=== PATIENT | female | born 1950 ===

== ENCOUNTER 2024-11-18 08:45 | Inpatient (IN) | payer OTHER ==
[~2024-11-18] VITALS: Ht 152.4 cm; Wt 93.9 kg
[2024-11-18] MEDS ORDERED: SYNJARDY 12.5-1 EACH PO (09:09)
[2024-11-18] MEDS ORDERED: COZAAR100 MG PO (09:10)
[2024-11-18] MEDS ORDERED: GLIPIZIDE ER10 MG PO (09:10)
[2024-11-18] MEDS ORDERED: AMLODIPINE-OLM1 EAC2 (09:11)
[2024-11-18] MEDS ORDERED: SINGULAIR4 M1 (09:11)
[2024-11-18] MEDS ORDERED: ZYRTEC10 M3 PO (09:11)
[2024-11-18] MEDS ORDERED: LIPITOR80 MG PO (09:12)
[2024-11-18] MEDS ORDERED: OZEMPIC0.25 MG/02 (09:12)
[2024-11-18 09:20] VITALS: BP 137/81
[2024-11-18 09:48] LABS: BASO % 0.5 % (0.1-1.2); EOS # 0.16 (0.04-0.54); EOS % 1.7 % (0.7-7.0); LYMPH # 3.62 (1.18-3.74); LYMPH % 38.3 % (19.3-53.1); MEAN PLATELET VOLUME 9.50 fl (9.4-12.4); MONO # 0.72 (0.24-0.82); MONO % 7.6 % (4.7-12.5); NEUT # 4.85 (1.56-6.13); NEUT % 51.5 % (34.0-71.1); RED CELL DISTRIBUTION WIDTH 14.5 % (11.6-14.4)
[2024-11-18 10:14] LABS: INR 0.95
[2024-11-18 10:26] LABS: URINE APPEARANCE Clear; URINE BILIRRUBIN Negative (NEGATIVE); URINE BLOOD Negative; URINE COLOR Dark Yellow; URINE KETONE 15 (NEGATIVE); URINE LEUKOCYTE Negative; URINE NITRATE Negative; URINE PROTEIN Trace (NEGATIVE); URINE UROBILINOGEN 0.2 E.U./dl
[2024-11-18 10:32] LABS: URINE BACTERIA 5699.8 uL (0.0-1933); URINE EPITHELIAL CELLS 32.9 uL (0.0-38.8); URINE RBC 11.1 uL (0.0-20.8); URINE WBC 10.3 uL (0.0-23.2)
[2024-11-18 10:37] LABS: BUN CREA RATIO 44.0 (7.0-25.0); CREATININE SERUM 0.59 mg/dL (0.55-1.02); GFR 100.48; GLUCOSE FASTING 76.0 mg/dL (65-100); OSMOLALITY SERUM 292.0 MOSM/KG (275-295)
[2024-11-18 10:54] LABS: URINE CAST 0.29 uL (0.0-1.40); URINE GLUCOSE 500 MG/DL (NEGATIVE)
[2024-11-18 10:55] LABS: URINE CRYSTALS MODERATE /HPF
[2024-11-18 10:56] LABS: URINE MUCUS MODERATE
[2024-11-18 11:03] LABS: RH POSITIVE
[2024-11-28] MEDS ORDERED: FUROSEMIDE20 MG (08:02)
[2024-11-28] MEDS ORDERED: MAXIMUM D3325 MCG (08:02)
[2024-11-28] MEDS ORDERED: MONTELUKAST SOD10 MG (08:02)
[2024-11-28] MEDS ORDERED: DULOXETINE HCL30 MG (08:02)
[2024-11-28] MEDS ORDERED: PENTOXIFYLLINE400 MG (08:02)
[2024-11-28] MEDS ORDERED: AMLODIPINE BESYL5 MG (08:02)
[2024-11-28] MEDS ORDERED: SYNJARDY XR 121 EACH (08:03)
[2024-11-28] MEDS ORDERED: LIDOCAINE HCL 1%/EPINEPHRINE 20ML VIAL IJ ONE (08:15)
[2024-11-28] MEDS ORDERED: BUPIVACAINE HCL 30 ML VIAL IJ ONE (08:15)
[2024-11-28] MEDS ORDERED: VANCOMYCIN HCL 1,000 MG VIAL IV ONE (08:15)
[2024-11-28] MEDS ORDERED: ISOPROPYL ALCOHOL 30 ML OUNCE TOP ONE (08:15)
[2024-11-28] MEDS ORDERED: TRANEXAMIC ACID 100MG/1ML (1000MG) AMPUL IV ONE (08:15)
[2024-11-28] MEDS ORDERED: MORPHINE SULFATE 4 MG/ML CARTRIDGE IV PRN (10:15)
[2024-11-28] MEDS ORDERED: ONDANSETRON HCL 2 MG/ML VIAL IV PRN (10:15)
[2024-11-28] MEDS ORDERED: MORPHINE SULFATE 2 MG/ML CARTRIDGE IV ONE (10:15)
[2024-11-28] MEDS ORDERED: SODIUM CHLORIDE 0.45 % 1,000 ML IV SCH (10:15)
[2024-11-28] MEDS ORDERED: MORPHINE SULFATE 4 MG/ML VIAL IV ONE ×2 (11:45→12:30)
[2024-11-28 16:45] VITALS: BP 143/66; O2SAT 94
[2024-11-28] MEDS ORDERED: VANCOMYCIN HCL 1,000 MG VIAL IV SCH (21:00)
[2024-11-29 02:32] VITALS: BP 136/75; O2SAT 97
[2024-11-29 06:59] LABS: BASO % 0.4 % (0.1-1.2); EOS # 0.06 (0.04-0.54); EOS % 0.6 % (0.7-7.0); LYMPH # 1.57 (1.18-3.74); LYMPH % 14.6 % (19.3-53.1); MEAN PLATELET VOLUME 10.00 fl (9.4-12.4); MONO # 1.11 (0.24-0.82); MONO % 10.3 % (4.7-12.5); NEUT # 7.89 (1.56-6.13); NEUT % 73.5 % (34.0-71.1); RED CELL DISTRIBUTION WIDTH 14.3 % (11.6-14.4)
[2024-11-29] MEDS ORDERED: ACETAMINOPHEN WITH CODEINE 1 UDTAB TABLET PO PRN (08:00)
[2024-11-29 08:20] VITALS: BP 153/78; O2SAT 95
[2024-11-29] MEDS ORDERED: RIVAROXABAN 10 MG TAB PO SCH (09:00)
[2024-11-29] MEDS ORDERED: MONTELUKAST SODIUM 10 MG TABLET PO SCH (09:00)
[2024-11-29] MEDS ORDERED: AMLODIPINE BESYLATE 5 MG TABLET PO SCH (09:00)
[2024-11-29] MEDS ORDERED: LOSARTAN POTASSIUM 100 MG TABLET PO SCH (09:00)
[2024-11-29] MEDS ORDERED: ATORVASTATIN CALCIUM 40 MG TABLET PO SCH (09:00)
[2024-11-29] MEDS ORDERED: IRON FUM,PS/FOLIC/BCOMP,C NO.9 1 CAP CAPSULE PO SCH (09:00)
[2024-11-29] MEDS ORDERED: GLIPIZIDE 10 MG TABLET PO SCH (09:00)
[2024-11-29] MEDS ORDERED: MetFORMIN HCL 1000 MG TABLET PO SCH (09:00)
[2024-11-29] MEDS ORDERED: BACITRACIN 28.35 GM OINT.TUBE TOP SCH (09:00)
[2024-11-29 17:13] VITALS: BP 143/70; O2SAT 97
[2024-11-29] MEDS ORDERED: SULFAMETHOXAZOLE/TRIMETHOPRIM DS 1 TAB PO SCH (21:00)
[2024-11-29 23:00] VITALS: BP 144/85; O2SAT 97
[2024-11-30] MEDS ORDERED: Septra Ds Tablet PO (06:32)
[2024-11-30] MEDS ORDERED: INTEGRA PLUS C1 EACH PO (06:32)
[2024-11-30] MEDS ORDERED: XARELTO10 MG PO (06:33)
[2024-11-30] MEDS ORDERED: ACETAMINOPHEN-1 EAC2 PO (06:33)
[2024-11-30 07:15] LABS: BASO % 0.3 % (0.1-1.2); EOS # 0.04 (0.04-0.54); EOS % 0.3 % (0.7-7.0); LYMPH # 3.40 (1.18-3.74); LYMPH % 21.9 % (19.3-53.1); MEAN PLATELET VOLUME 10.00 fl (9.4-12.4); MONO # 1.66 (0.24-0.82); MONO % 10.7 % (4.7-12.5); NEUT # 10.24 (1.56-6.13); NEUT % 65.8 % (34.0-71.1); RED CELL DISTRIBUTION WIDTH 14.0 % (11.6-14.4)
[2024-11-30 09:30] VITALS: BP 151/83; O2SAT 98
== END 2024-11-30 18:08 | DRG 470 ==
LOC: O/R 11-28 06:04 → SURG 11-28 06:04 → SURH 11-28 08:45 → SURG 11-28 14:54
PROVIDERS: ADMIT Orthopaedic Surgery Sports Medicine; ATTEND Orthopaedic Surgery Sports Medicine
PROC: 0SRD0J9 Replacement of Left Knee Joint with Synthetic Substitute, Cemented, Open Approach (ICD-10-PCS; principal; 2024-11-28 09:30)
DX: M17.12 Unilateral primary osteoarthritis, left knee (principal)